=== PATIENT | female | born 1935 | race African-American/Black ===

== ENCOUNTER → 2017-10-06 | Emergency (ER) | payer OTHER ==
[~2017-10-06] VITALS: Ht 162.6 cm; Wt 87.5 kg
[~2017-10-06] MED LIST: BISOPROLOL HCTZ; CIPRO500 MG PO; DICLOFENAC SODI50 MG PO; ENDOCET 5/325 T1 TAB; LEVAQUIN750 MG PO; LORAZEPAM1 MG; ORPH100T PO; OXYCONTIN40 MG; PEPCID40 MG; SYNTHROID112 MCG; TRAMADOL HCL50 MG; ZOCOR40 MG
== END | disposition home or self-care (01) ==
LOC: ER 14:35
DX: N30.90 Cystitis, unspecified without hematuria (principal); N39.0 Urinary tract infection, site not specified; R82.79 Other abnormal findings on microbiological examination of urine

== ENCOUNTER 2020-05-27 08:11 | Outpatient (CLI) | payer OTHER ==
[~2020-05-27 08:11] MED LIST changes: +NEURONTIN800 MG; +PROTONIX40 MG; +ZIAC 2.5-6.251 EACH; +ZOLOFT50 MG
== END 2020-05-27 08:19 | disposition home or self-care (01) ==
LOC: TOM 08:11
PROVIDERS: ATTEND Internal Medicine Gastroenterology
DX: R10.30 Lower abdominal pain, unspecified (principal); Z86.010 Personal history of colon polyps

== ENCOUNTER 2022-03-02 09:24 | Emergency (ER) | payer OTHER ==
[~2022-03-02] VITALS: Ht 160 cm; Wt 88.5 kg
== END 2022-03-02 13:07 | disposition home or self-care (01) ==
LOC: ER 09:24
DX: N39.0 Urinary tract infection, site not specified (principal); I10 Essential (primary) hypertension; N95.2 Postmenopausal atrophic vaginitis